=== PATIENT | male | born 1965 ===

== ENCOUNTER → 2023-11-30 18:00 | Outpatient (REF) | payer OTHER, SELFPAY ==
--- NOTE | 2023-12-01 11:45 | PN.DIAED04 ---
Education Record
- Education Record
Class Attended: Class 4
DSME Class Series Code: [id number]
Instructor: Registered Nurse (Carmen Gallo, RN, BSN, CDE)
Class Length (mins): 120
Post-Class 4 Test Score (%): 100
== END ==
LOC: DES 18:00
PROVIDERS: ATTENDING PHYSICIAN Physician Assistant Medical
DX: E11.9 Type 2 diabetes mellitus without complications (principal)
CPT/HCPCS: 99078

== ENCOUNTER → 2023-12-07 18:00 | Outpatient (REF) | payer OTHER, SELFPAY ==
--- NOTE | 2023-12-08 15:27 | PN.DIAED16 ---
This is to notify you that your patient with diabetes, HUNG CHATTERJEE ( 1965), has attended the entire series of Diabetes Self-Management Education Classes.
Class 1 (120 minutes): Diabetes Overview - monitoring, stress/psychosocial adjustment, support, goal setting
Class 2 (120 minutes): Meal Planning - serving sizes, menu plans
Class 3 (120 minutes): Introduction to Carbohydrate Counting, Analyzing Food Labels
Class 4 (120 minutes): Medication, Exercise and Activity
Class 5 (120 minutes): Sick Day Management, Strategies to Reduce Complications, Problem Solving, Resources
The following behavioral goals were identified:
Exercise more often
Make better food choices
Follow meal plan
Reduce portion sizes
Follow monitoring times
A follow-up call will be made within three to six months to evaluate attainment of these goals and to check post-program Hemoglobin A1c and overall progress. All class participants are encouraged to contact me if I can be any further assistance in
learning how to manage their diabetes.
Sincerely,
--- NOTE | 2023-12-14 11:44 | PN.DIAED04 ---
Education Record
- Education Record
Class Attended: Class 5
DSME Class Series Code:
Instructor: Registered Nurse (Carmen Gallo, RN, BSN, [facility])
Class Curriculum:
Outpatient Diabetes Education Program:
Class 5 (120 minutes)
Prevent, detect, and treat acute complications
Prevent, detect, and treat chronic complications through risk reduction
Develop personal strategies to address psychosocial issues and concerns
Development of diabetes self-management support plan
Letter to physician with DSMS plan attached sent
Class Length (mins): 120 (Initially registered for classes)
Post-Program Knowledge: Demonstrates competency
Post-Test Score (%): 95
Post-Program Assessment
- Post-Program Assessment
Actual Weight: 211 lb
Blood pressure: 141/82
Post-Program Depression Survey Score: 1
Reviewing Previous Goals?: Yes
Pre-Program Depression Survey Score: 2
- Goals 1 Evaluation
Goals To Be Evaluated: Exercise more often
- Goals 2 Evaluation
Goals To Be Evaluated: Make better food choices. Follow meal plan. Reduce portion sizes
- Goals 3 Evaluation
Goals To Be Evaluated: Follow monitoring times
== END ==
LOC: DES 18:00
PROVIDERS: ATTENDING PHYSICIAN Physician Assistant Medical
DX: E11.9 Type 2 diabetes mellitus without complications (principal)
CPT/HCPCS: 99078